=== PATIENT | female | born 1980 ===

== ENCOUNTER 2019-04-15 20:49 | Emergency (ER) | payer SELFPAY ==
[2019-04-15] MEDS ORDERED: SODIUM CHLORIDE 0.9% 1000 ML 1,000 ML IV ONE (21:42)
[2019-04-15] MEDS ORDERED: TETANUS,DIPH,PERTUSS(ACELL) VACCINE 0.5 ML SYRINGE IM ONE (21:42)
[2019-04-15] MEDS ORDERED: ONDANSETRON 4 MG/2 ML INJ IV ONE (21:42)
[2019-04-15] MEDS ORDERED: MORPHINE 4 MG/1 ML INJ IV ONE (21:42)
[2019-04-15 22:26] LABS: Basophils # (Auto) 0.1 K/mm3 (0.0-0.1); Basophils % (Auto) 0.7 % (0.0-1.8); Eosinophils # (Auto) 0.2 K/mm3 (0.0-0.4); Eosinophils % (Auto) 2.7 % (0.0-4.3); Hematocrit 38.4 % (30.3-42.9); Hemoglobin 12.4 gm/dl (10.1-14.3); Lymphocytes # (Auto) 1.5 K/mm3 (1.2-5.4); Lymphocytes % (Auto) 16.4 % (13.4-35.0); Mean Corpuscular HGB Conc 32 % (30-34); Mean Corpuscular Volume 77 fl (79-97); Monocytes % (Auto) 10.2 % (0.0-7.3); Platelet Count 277 K/mm3 (140-440); Red Blood Count 4.98 M/mm3 (3.65-5.03); Red Cell Distribution Width 17.8 % (13.2-15.2)
[2019-04-15 22:50] LABS: Albumin 4.1 g/dL (3.9-5); BUN/Creatinine Ratio 27; Blood Urea Nitrogen 19 mg/dL (7-17); Calcium 8.7 mg/dL (8.4-10.2); Hemolysis Index 152
[2019-04-15 22:51] LABS: Alanine Aminotransferase 25 units/L (7-56)
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
[2019-04-16 01:36] VITALS: BP 111/76
[2019-04-16] MEDS ORDERED: KETOROLAC 30 MG/1 ML INJ IV ONE (01:39)
[2019-04-16] MEDS ORDERED: oxyCODONE /ACETAMINOPHEN 5-325MG TAB PO ONE (01:39)
[2019-04-16] MEDS ORDERED: ONDANSETRON 4 MG ODT TAB PO ONE (01:40)
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
== END 2019-04-16 02:55 | disposition home or self-care (01) ==
LOC: ED 20:49
DX: S40.022A Contusion of left upper arm, initial encounter (principal); M54.5 Low back pain; M54.2 Cervicalgia; R51 Headache; M54.6 Pain in thoracic spine; R07.89 Other chest pain; R10.9 Unspecified abdominal pain; Z79.1 Long term (current) use of non-steroidal anti-inflammatories (NSAID); Z79.899 Other long term (current) drug therapy; V89.2XXA Person injured in unspecified motor-vehicle accident, traffic, initial encounter; Y93.89 Activity, other specified; Y92.488 Other paved roadways as the place of occurrence of the external cause; Y99.8 Other external cause status
CPT/HCPCS: 36415; 70450; 71250; 72125; 72128; 72131; 73030; 73080; 73110; 74177; 80053; 84703; 85025; 90471; 90715; 93005; 93010; 96374; 96375; 99285; J1885; J2270; J2405; J7030; Q9967; Q0162